=== PATIENT | male | born 1960 | race Caucasian/White ===

== ENCOUNTER 2016-12-25 11:39 | Emergency (ER) | payer MEDICAID, OTHER ==
[~2016-12-25] VITALS: Ht 175.3 cm; Wt 70.4 kg
[~2016-12-25 11:39] MED LIST: DIVA500T69 PO; QUET200T PO
[2016-12-25] MEDS ORDERED: OLAN10TA3 PO (11:55)
[2016-12-25 12:26] LABS: BASOPHILS # (AUTO) 0.03 K/uL (0.00-0.20); BASOPHILS % (AUTO) 0.6 % (0.0-2.0); EOSINOPHILS % (AUTO) 1.81 % (1.0-6.0); HEMATOCRIT 39.3 % (41-53); HEMOGLOBIN 13.2 g/dL (13.5-17.5); LYMPHOCYTES # (AUTO) 1.2 K/uL (1.0-4.8); LYMPHOCYTES % (AUTO) 22.7 % (22.0-44.0); MEAN CORPUSCULAR HGB CONC 33.6 G/dL (31.0-37.0); MEAN CORPUSCULAR VOLUME 95 fL (80-100); MONOCYTES # (AUTO) 0.5 K/uL (0.1-1.0); MONOCYTES % (AUTO) 9.8 % (2.0-9.0); NEUTROPHILS # (AUTO) 3.5 K/uL (1.8-7.7); PLATELET COUNT (AUTO) 149 K/uL (150-450); RED BLOOD CELL COUNT(AUTO) 4.13 MIL/uL (4.50-5.90); RED CELL DISTRIBUTION WIDTH 13.3 % (11.5-14.5); WHITE BLOOD COUNT (AUTO) 5.4 K/uL (4.5-11.0)
[2016-12-25 12:35] LABS: ANION GAP 5 mmol/L (8-16); CALCIUM, TOTAL 8.3 mg/dL (8.8-10.5); CARBON DIOXIDE 29 mmol/L (22-29); CHLORIDE 102 mmol/L (98-107); CREATININE 0.85 mg/dL (0.60-1.30); GLOMERULAR FILTR. RATE CALC > 60 mL/min (>60); POTASSIUM 4.1 mmol/L (3.5-5.1); SODIUM SERUM 136 mmol/L (136-145); UREA NITROGEN, BLOOD 12 mg/dL (7-18)
[2016-12-25 12:42] LABS: ALANINE AMINOTRANSFERASE 43 U/L (12-78); ALBUMIN 3.5 g/dL (3.4-5.0); ASPARTATE AMINOTRANSFERASE 26 U/L (15-37); BILIRUBIN,TOTAL 0.5 mg/dL (0.1-1.0); TOTAL PROTEIN, SERUM 6.9 g/dL (6.4-8.2)
[2016-12-25] MEDS ORDERED: QUEtiapine FUMARATE 100 MG TABLET PO ONE (14:15)
[2016-12-25 16:09] VITALS: BP 135/82
== END 2016-12-25 16:13 | disposition home or self-care (01) ==
LOC: EEVIPCON 11:41 → EMS 11:41
DX: F20.9 Schizophrenia, unspecified (principal); K02.9 Dental caries, unspecified; F15.10 Other stimulant abuse, uncomplicated; F31.9 Bipolar disorder, unspecified; F17.210 Nicotine dependence, cigarettes, uncomplicated
CPT/HCPCS: 36415; 80053; 80307; 85025; 99284; 99406; G0480

== ENCOUNTER 2018-12-30 10:28 | Inpatient (IN) | payer MEDICAID, OTHER ==
[~2018-12-30] VITALS: Ht 167.6 cm; Wt 73.5 kg
[~2018-12-30 10:28] MED LIST changes: -DIVA500T69 PO; +OLAN10TA3 PO; -QUET200T PO
[2018-12-30] MEDS ORDERED: LORazepam 2 MG/ML VIAL IM ONE (11:30)
[2018-12-30] MEDS ORDERED: DiphenhydrAMINE HCL 50 MG/ML VIAL IM ONE (11:30)
[2018-12-30 12:12] LABS: BASOPHILS % (AUTO) 0.3 % (0.0-2.0); EOSINOPHILS % (AUTO) 0 % (1.0-6.0); HEMATOCRIT 34.6 % (41-53); HEMOGLOBIN 11.7 g/dL (13.5-17.5); LYMPHOCYTES # (AUTO) 0.9 K/uL (1.0-4.8); LYMPHOCYTES % (AUTO) 12.4 % (22.0-44.0); MEAN CORPUSCULAR HEMOGLOBIN 30.8 pg (26.0-34.0); MEAN CORPUSCULAR HGB CONC 33.9 G/dL (31.0-37.0); MEAN CORPUSCULAR VOLUME 91 fL (80-100); MONOCYTES # (AUTO) 0.7 K/uL (0.1-1.0); MONOCYTES % (AUTO) 9.9 % (2.0-9.0); NEUTROPHILS # (AUTO) 5.5 K/uL (1.8-7.7); NEUTROPHILS % (AUTO) 77.4 % (40.0-70.0); PLATELET COUNT (AUTO) 198 K/uL (150-450); RED BLOOD CELL COUNT(AUTO) 3.81 MIL/uL (4.50-5.90); RED CELL DISTRIBUTION WIDTH 13.2 % (11.5-14.5)
[2018-12-30] MEDS ORDERED: ZOLPIDEM TARTRATE 10 MG TABLET PO PRN (12:15)
[2018-12-30] MEDS ORDERED: HALOPERIDOL 5 MG TABLET PO PRN (12:15)
[2018-12-30 12:21] LABS: ANION GAP 10 mmol/L (8-16); CALCIUM, TOTAL 9.8 mg/dL (8.8-10.5); CARBON DIOXIDE 27 mmol/L (22-29); CHLORIDE 107 mmol/L (98-107); GLOMERULAR FILTR. RATE CALC 44 mL/min (>60); GLUCOSE,RANDOM 117 mg/dL (70-110); POTASSIUM 3.8 mmol/L (3.5-5.1); SODIUM SERUM 144 mmol/L (136-145); UREA NITROGEN, BLOOD 38 mg/dL (7-18)
[2018-12-30 12:27] LABS: ALANINE AMINOTRANSFERASE 80 U/L (12-78); ALKALINE PHOSPHATASE 91 U/L (46-116); ASPARTATE AMINOTRANSFERASE 66 U/L (15-37); BILIRUBIN,TOTAL 0.6 mg/dL (0.1-1.0); TOTAL PROTEIN, SERUM 8.2 g/dL (6.4-8.2)
[2018-12-30 16:17] VITALS: BP 116/67
[2018-12-30] MEDS ORDERED: ACETAMINOPHEN 325 MG TABLET PO PRN (16:45)
[2018-12-30] MEDS ORDERED: MAGNESIUM HYDROXIDE SUSPENSION 30 ML UDCUP PO PRN (16:45)
[2018-12-30] MEDS ORDERED: ALBUTEROL SULFATE HFA 90 MCG/PUFF 8 GM INHALER IH PRN (16:45)
[2018-12-30] MEDS ORDERED: CloNIDine HCL 0.1 MG TABLET PO PRN (16:45)
[2018-12-30] MEDS ORDERED: LOPERAMIDE HCL 2 MG CAPSULE PO PRN (16:45)
[2018-12-30] MEDS ORDERED: ONDANSETRON HCL 4 MG TABLET PO PRN (16:45)
[2018-12-30] MEDS ORDERED: NICOTINE 14 MG/24 HOUR PATCH TD PRN (16:45)
[2018-12-30] MEDS ORDERED: DOCUSATE SODIUM 100 MG CAPSULE PO PRN (16:45)
[2018-12-30] MEDS ORDERED: GuaiFENesin/D-METHORPHAN [SUGAR-FREE] 200-20MG/10 ML SYRUP UDCUP PO PRN (16:45)
[2018-12-30] MEDS ORDERED: IBUPROFEN 400 MG TABLET PO PRN (16:45)
[2018-12-30] MEDS ORDERED: MAG HYDROX/AL HYDROX/SIMETH ES 30 ML SUSPENSION UDCUP PO PRN (16:45)
[2018-12-30] MEDS: QUEtiapine FUMARATE 200 MG TABLET PO SCH (20:50)
[2018-12-30] MEDS ORDERED: QUEtiapine FUMARATE 100 MG TABLET PO SCH (21:00)
[2018-12-31 02:46] VITALS: BP 111/58
[2018-12-31] MEDS: QUEtiapine FUMARATE 200 MG TABLET PO SCH ×2 (08:54→20:31)
[2018-12-31 12:47] VITALS: BP 118/72
[2018-12-31] MEDS: LORazepam 2 MG TABLET PO PRN (13:19)
[2019-01-01 01:36] VITALS: BP 102/59
[2019-01-01] MEDS: QUEtiapine FUMARATE 200 MG TABLET PO SCH ×2 (08:41→20:21)
[2019-01-01] MEDS: LORazepam 2 MG TABLET PO PRN (15:10)
[2019-01-01 16:15] VITALS: BP 124/67
[2019-01-02 03:18] VITALS: BP 119/64
[2019-01-02 08:27] VITALS: BP 129/78
[2019-01-02] MEDS: QUEtiapine FUMARATE 200 MG TABLET PO SCH ×2 (08:33→20:25)
[2019-01-02 16:00] VITALS: BP 98/80
[2019-01-03 03:01] VITALS: BP 121/72
[2019-01-03 08:15] VITALS: BP 135/83
[2019-01-03] MEDS: QUEtiapine FUMARATE 200 MG TABLET PO SCH ×2 (08:15→20:21)
[2019-01-03 08:41] LABS: ANION GAP 8 mmol/L (8-16); CALCIUM, TOTAL 9.1 mg/dL (8.8-10.5); CARBON DIOXIDE 29 mmol/L (22-29); CHLORIDE 105 mmol/L (98-107); CREATININE 0.83 mg/dL (0.60-1.30); GLOMERULAR FILTR. RATE CALC > 60 mL/min (>60); GLUCOSE,RANDOM 78 mg/dL (70-110); POTASSIUM 4.6 mmol/L (3.5-5.1); SODIUM SERUM 142 mmol/L (136-145); UREA NITROGEN, BLOOD 21 mg/dL (7-18)
[2019-01-03 16:00] VITALS: BP 108/66
[2019-01-04 04:51] VITALS: BP 111/71
[2019-01-04 08:09] VITALS: BP 128/64
[2019-01-04] MEDS: QUEtiapine FUMARATE 200 MG TABLET PO SCH (08:21)
[2019-01-04] MEDS ORDERED: QUET200T PO (15:12)
[2019-01-04 16:08] VITALS: BP 126/67
== END 2019-01-04 17:07 | disposition home or self-care (01) | DRG 750 ==
LOC: EMS 10:31 → B3A 14:54
PROVIDERS: ATTEND Psychiatry & Neurology Child & Adolescent Psychiatry
DX: F20.0 Paranoid schizophrenia (principal); N17.9 Acute kidney failure, unspecified; Z59.0 Homelessness; Z78.1 Physical restraint status; B19.20 Unspecified viral hepatitis C without hepatic coma; F17.210 Nicotine dependence, cigarettes, uncomplicated; J44.9 Chronic obstructive pulmonary disease, unspecified; D64.9 Anemia, unspecified; F31.9 Bipolar disorder, unspecified; F10.10 Alcohol abuse, uncomplicated; F15.90 Other stimulant use, unspecified, uncomplicated; Z56.0 Unemployment, unspecified
CPT/HCPCS: 80074; G0480; J1200; J2060; J3230

== ENCOUNTER 2019-12-15 11:25 | Inpatient (IN) | payer MEDICAID, OTHER ==
[~2019-12-15] VITALS: Ht 170.2 cm; Wt 62.1 kg
[~2019-12-15 11:25] MED LIST changes: -OLAN10TA3 PO; +QUET200T PO
[2019-12-15] MEDS ORDERED: HALOPERIDOL LACTATE 5 MG/ML VIAL IM ONE (11:45)
[2019-12-15 12:23] LABS: BASOPHILS % (AUTO) 0.3 % (0.0-2.0); EOSINOPHILS % (AUTO) 0.4 % (1.0-6.0); HEMATOCRIT 32.5 % (41-53); HEMOGLOBIN 10.9 g/dL (13.5-17.5); LYMPHOCYTES # (AUTO) 0.8 K/uL (1.0-4.8); LYMPHOCYTES % (AUTO) 16.8 % (22.0-44.0); MEAN CORPUSCULAR HEMOGLOBIN 31.4 pg (26.0-34.0); MEAN CORPUSCULAR HGB CONC 33.6 G/dL (31.0-37.0); MEAN CORPUSCULAR VOLUME 94 fL (80-100); MONOCYTES # (AUTO) 0.5 K/uL (0.1-1.0); MONOCYTES % (AUTO) 10.8 % (2.0-9.0); NEUTROPHILS # (AUTO) 3.3 K/uL (1.8-7.7); NEUTROPHILS % (AUTO) 71.7 % (40.0-70.0); PLATELET COUNT (AUTO) 195 K/uL (150-450); RED BLOOD CELL COUNT(AUTO) 3.48 MIL/uL (4.50-5.90); RED CELL DISTRIBUTION WIDTH 15.4 % (11.5-14.5)
[2019-12-15 12:37] LABS: ANION GAP 11 mmol/L (8-16); CALCIUM, TOTAL 8.8 mg/dL (8.8-10.5); CARBON DIOXIDE 26 mmol/L (22-29); CHLORIDE 103 mmol/L (98-107); CREATININE 1.01 mg/dL (0.60-1.30); GLOMERULAR FILTR. RATE CALC > 60 mL/min (>60); GLUCOSE,RANDOM 94 mg/dL (70-110); POTASSIUM 3.9 mmol/L (3.5-5.1); SODIUM SERUM 140 mmol/L (136-145); UREA NITROGEN, BLOOD 18 mg/dL (7-18)
[2019-12-15 12:42] LABS: ALANINE AMINOTRANSFERASE 85 U/L (12-78); ALBUMIN 3.8 g/dL (3.4-5.0); ALKALINE PHOSPHATASE 79 U/L (46-116); ASPARTATE AMINOTRANSFERASE 60 U/L (15-37); BILIRUBIN,TOTAL 0.4 mg/dL (0.1-1.0); TOTAL PROTEIN, SERUM 7.7 g/dL (6.4-8.2)
[2019-12-15] MEDS ORDERED: SODIUM CHLORIDE 0.9% 0 ML ONE (12:58)
[2019-12-15] MEDS ORDERED: IOVERSOL 320 MG/ML 100 ML VIAL ONE (12:58)
[2019-12-15] MEDS ORDERED: CefTRIAXone SODIUM 1 GM/VIAL IM ONE (14:00)
[2019-12-15] MEDS ORDERED: LIDOCAINE/PF 1% 2 ML VIAL IM ONE (14:00)
[2019-12-15] MEDS ORDERED: SULFAMETHOX/TRIMETH DS 800-160 MG/TABLET PO ONE (14:00)
[2019-12-15] MEDS ORDERED: ZOLPIDEM TARTRATE 10 MG TABLET PO PRN (18:45)
[2019-12-15] MEDS ORDERED: HALOPERIDOL 5 MG TABLET PO PRN (18:45)
[2019-12-15] MEDS ORDERED: LORazepam 2 MG TABLET PO PRN (18:45)
[2019-12-15 19:18] LABS: AMPHET/METH SCREEN,URINE POSITIVE (NEGATIVE); BARBITURATE SCREEN, URINE NEGATIVE (NEGATIVE); BENZODIAZEPINES SCREEN,URINE NEGATIVE (NEGATIVE); CANNABINOID SCREEN,URINE NEGATIVE (NEGATIVE); COCAINE SCREEN,URINE NEGATIVE (NEGATIVE); METHADONE SCREEN, URINE NEGATIVE (NEGATIVE); OPIATE SCREEN,URINE NEGATIVE (NEGATIVE)
[2019-12-15 19:38] LABS: PHENCYCLIDINE SCREEN,URINE NEGATIVE (NEGATIVE)
[2019-12-15 22:11] VITALS: BP 128/92
[2019-12-16] MEDS ORDERED: DOCUSATE SODIUM 100 MG CAPSULE PO PRN (07:45)
[2019-12-16] MEDS ORDERED: IBUPROFEN 400 MG TABLET PO PRN (07:45)
[2019-12-16] MEDS ORDERED: LOPERAMIDE HCL 2 MG CAPSULE PO PRN (07:45)
[2019-12-16] MEDS ORDERED: ONDANSETRON HCL 4 MG TABLET PO PRN (07:45)
[2019-12-16] MEDS ORDERED: NICOTINE 14 MG/24 HOUR PATCH TD PRN (07:45)
[2019-12-16] MEDS ORDERED: MAGNESIUM HYDROXIDE SUSPENSION 30 ML UDCUP PO PRN (07:45)
[2019-12-16] MEDS ORDERED: MAG HYDROX/AL HYDROX/SIMETH ES 30 ML SUSPENSION UDCUP PO PRN (07:45)
[2019-12-16] MEDS ORDERED: GuaiFENesin/D-METHORPHAN [SUGAR-FREE] 200-20MG/10 ML SYRUP UDCUP PO PRN (07:45)
[2019-12-16] MEDS ORDERED: CloNIDine HCL 0.1 MG TABLET PO PRN (07:45)
[2019-12-16] MEDS ORDERED: ALBUTEROL SULFATE HFA 90 MCG/PUFF 8 GM INHALER IH PRN (07:45)
[2019-12-16] MEDS ORDERED: ACETAMINOPHEN 325 MG TABLET PO PRN (07:45)
[2019-12-16] MEDS ORDERED: PETROLATUM,WHITE 28 GM JELLY TP PRN (07:45)
[2019-12-16 07:53] LABS: CHOL/HDL RATIO 2.4 (4.2-7.3)
[2019-12-16] MEDS: NICOTINE 14 MG/24 HOUR PATCH TD SCH (09:00)
[2019-12-16] MEDS: SULFAMETHOX/TRIMETH DS 800-160 MG/TABLET PO SCH ×2 (09:11→16:26)
[2019-12-16] MEDS: CEPHALEXIN MONOHYDRATE 500 MG CAPSULE PO SCH ×3 (09:11→23:38)
[2019-12-16 16:00] VITALS: BP 148/89
[2019-12-16] MEDS: OLANZapine 5 MG TABLET PO SCH (16:26)
[2019-12-16 16:48] VITALS: BP 150/90
[2019-12-17] MEDS: OLANZapine 5 MG TABLET PO SCH ×2 (08:45→16:57)
[2019-12-17] MEDS: SULFAMETHOX/TRIMETH DS 800-160 MG/TABLET PO SCH ×2 (08:45→16:57)
[2019-12-17] MEDS: CEPHALEXIN MONOHYDRATE 500 MG CAPSULE PO SCH ×3 (08:45→23:43)
[2019-12-17] MEDS: MULTIVITAMINS WITH MINERALS, THERAPEUTIC TABLET PO SCH (08:45)
[2019-12-17] MEDS: NICOTINE 14 MG/24 HOUR PATCH TD SCH (08:52)
[2019-12-17 16:13] VITALS: BP 107/72
[2019-12-18] MEDS: OLANZapine 5 MG TABLET PO SCH ×2 (08:21→16:39)
[2019-12-18] MEDS: CEPHALEXIN MONOHYDRATE 500 MG CAPSULE PO SCH ×3 (08:21→23:41)
[2019-12-18] MEDS: NICOTINE 14 MG/24 HOUR PATCH TD SCH (08:21)
[2019-12-18] MEDS: SULFAMETHOX/TRIMETH DS 800-160 MG/TABLET PO SCH ×2 (08:21→16:38)
[2019-12-18] MEDS: MULTIVITAMINS WITH MINERALS, THERAPEUTIC TABLET PO SCH (08:21)
[2019-12-18 10:41] VITALS: BP 132/73
[2019-12-18] MEDS: CLINDAMYCIN HCL 300 MG CAPSULE PO SCH ×2 (13:49→16:38)
[2019-12-18 19:11] VITALS: BP 106/60
[2019-12-19] MEDS: SULFAMETHOX/TRIMETH DS 800-160 MG/TABLET PO SCH ×2 (08:45→16:18)
[2019-12-19] MEDS: CLINDAMYCIN HCL 300 MG CAPSULE PO SCH ×3 (08:45→16:18)
[2019-12-19] MEDS: OLANZapine 5 MG TABLET PO SCH ×2 (08:45→16:18)
[2019-12-19] MEDS: MULTIVITAMINS WITH MINERALS, THERAPEUTIC TABLET PO SCH (08:45)
[2019-12-19] MEDS: NICOTINE 14 MG/24 HOUR PATCH TD SCH (08:46)
[2019-12-19] MEDS: CEPHALEXIN MONOHYDRATE 500 MG CAPSULE PO SCH ×2 (08:46→16:18)
[2019-12-19 08:52] VITALS: BP 112/69
[2019-12-19 17:54] VITALS: BP 151/78
[2019-12-20] MEDS: CEPHALEXIN MONOHYDRATE 500 MG CAPSULE PO SCH ×3 (00:02→16:11)
[2019-12-20] MEDS: SULFAMETHOX/TRIMETH DS 800-160 MG/TABLET PO SCH ×2 (08:43→16:10)
[2019-12-20] MEDS: OLANZapine 5 MG TABLET PO SCH ×2 (08:43→16:10)
[2019-12-20] MEDS: CLINDAMYCIN HCL 300 MG CAPSULE PO SCH ×3 (08:43→16:10)
[2019-12-20] MEDS: MULTIVITAMINS WITH MINERALS, THERAPEUTIC TABLET PO SCH (08:43)
[2019-12-20] MEDS: NICOTINE 14 MG/24 HOUR PATCH TD SCH (08:44)
[2019-12-20 09:13] VITALS: BP 153/90
[2019-12-20 19:27] VITALS: BP 128/71
[2019-12-21] MEDS: CEPHALEXIN MONOHYDRATE 500 MG CAPSULE PO SCH ×3 (00:17→16:03)
[2019-12-21 08:00] VITALS: BP 114/60
[2019-12-21] MEDS: SULFAMETHOX/TRIMETH DS 800-160 MG/TABLET PO SCH ×2 (08:01→16:03)
[2019-12-21] MEDS: OLANZapine 5 MG TABLET PO SCH ×2 (08:01→16:03)
[2019-12-21] MEDS: MULTIVITAMINS WITH MINERALS, THERAPEUTIC TABLET PO SCH (08:01)
[2019-12-21] MEDS: CLINDAMYCIN HCL 300 MG CAPSULE PO SCH ×3 (08:02→16:03)
[2019-12-21] MEDS: NICOTINE 14 MG/24 HOUR PATCH TD SCH (08:02)
[2019-12-21 16:52] VITALS: BP 116/73
[2019-12-22] MEDS: CEPHALEXIN MONOHYDRATE 500 MG CAPSULE PO SCH ×3 (00:12→16:03)
[2019-12-22] MEDS: CLINDAMYCIN HCL 300 MG CAPSULE PO SCH ×3 (08:49→16:03)
[2019-12-22] MEDS: SULFAMETHOX/TRIMETH DS 800-160 MG/TABLET PO SCH ×2 (08:49→16:03)
[2019-12-22] MEDS: MULTIVITAMINS WITH MINERALS, THERAPEUTIC TABLET PO SCH (08:49)
[2019-12-22] MEDS: OLANZapine 5 MG TABLET PO SCH ×2 (08:49→16:03)
[2019-12-22] MEDS: NICOTINE 14 MG/24 HOUR PATCH TD SCH (08:50)
[2019-12-22 12:37] VITALS: BP 124/100
[2019-12-22 16:52] VITALS: BP 127/62
[2019-12-23] MEDS: SULFAMETHOX/TRIMETH DS 800-160 MG/TABLET PO SCH ×2 (08:10→16:14)
[2019-12-23] MEDS: OLANZapine 5 MG TABLET PO SCH ×2 (08:11→16:14)
[2019-12-23] MEDS: CLINDAMYCIN HCL 300 MG CAPSULE PO SCH ×3 (08:11→16:14)
[2019-12-23] MEDS: CEPHALEXIN MONOHYDRATE 500 MG CAPSULE PO SCH ×4 (08:11→23:53)
[2019-12-23] MEDS: MULTIVITAMINS WITH MINERALS, THERAPEUTIC TABLET PO SCH (08:11)
[2019-12-23] MEDS: NICOTINE 14 MG/24 HOUR PATCH TD SCH (08:12)
[2019-12-23 08:35] VITALS: BP 133/87
[2019-12-23 17:11] VITALS: BP 151/89
[2019-12-24] MEDS: MULTIVITAMINS WITH MINERALS, THERAPEUTIC TABLET PO SCH (08:59)
[2019-12-24] MEDS: CEPHALEXIN MONOHYDRATE 500 MG CAPSULE PO SCH ×3 (08:59→23:57)
[2019-12-24] MEDS: OLANZapine 5 MG TABLET PO SCH ×2 (08:59→16:09)
[2019-12-24] MEDS: CLINDAMYCIN HCL 300 MG CAPSULE PO SCH ×3 (08:59→16:09)
[2019-12-24] MEDS: SULFAMETHOX/TRIMETH DS 800-160 MG/TABLET PO SCH ×2 (08:59→16:09)
[2019-12-24] MEDS: NICOTINE 14 MG/24 HOUR PATCH TD SCH (09:12)
[2019-12-24 09:33] VITALS: BP 136/79
[2019-12-24 17:15] VITALS: BP 108/66
[2019-12-25] MEDS: CEPHALEXIN MONOHYDRATE 500 MG CAPSULE PO SCH ×2 (08:20→16:12)
[2019-12-25] MEDS: OLANZapine 5 MG TABLET PO SCH ×2 (08:20→16:12)
[2019-12-25] MEDS: MULTIVITAMINS WITH MINERALS, THERAPEUTIC TABLET PO SCH (08:20)
[2019-12-25] MEDS: SULFAMETHOX/TRIMETH DS 800-160 MG/TABLET PO SCH ×2 (08:20→16:12)
[2019-12-25] MEDS: NICOTINE 14 MG/24 HOUR PATCH TD SCH (08:21)
[2019-12-25] MEDS: CLINDAMYCIN HCL 300 MG CAPSULE PO SCH (08:21)
[2019-12-25 08:39] VITALS: BP 114/75
[2019-12-25 17:00] VITALS: BP 102/53
[2019-12-26] MEDS: CEPHALEXIN MONOHYDRATE 500 MG CAPSULE PO SCH (00:14)
[2019-12-26] MEDS: OLANZapine 5 MG TABLET PO SCH ×2 (08:41→16:09)
[2019-12-26] MEDS: MULTIVITAMINS WITH MINERALS, THERAPEUTIC TABLET PO SCH (08:42)
[2019-12-26] MEDS: NICOTINE 14 MG/24 HOUR PATCH TD SCH (08:42)
[2019-12-26 09:07] VITALS: BP 138/89
[2019-12-26 16:36] VITALS: BP 129/77
[2019-12-27 05:44] VITALS: BP 100/72
[2019-12-27] MEDS: NICOTINE 14 MG/24 HOUR PATCH TD SCH (08:30)
[2019-12-27] MEDS: OLANZapine 5 MG TABLET PO SCH ×2 (08:30→16:17)
[2019-12-27] MEDS: MULTIVITAMINS WITH MINERALS, THERAPEUTIC TABLET PO SCH (08:30)
[2019-12-27 08:48] VITALS: BP 114/65
[2019-12-27 16:32] VITALS: BP 118/71
[2019-12-27] MEDS: CLOTRIMAZOLE 1% 10 ML SOLUTION TP SCH (18:37)
[2019-12-28 01:05] VITALS: BP 124/61
[2019-12-28 09:05] VITALS: BP 101/58
[2019-12-28] MEDS: OLANZapine 5 MG TABLET PO SCH ×2 (09:07→16:16)
[2019-12-28] MEDS: MULTIVITAMINS WITH MINERALS, THERAPEUTIC TABLET PO SCH (09:07)
[2019-12-28] MEDS: NICOTINE 14 MG/24 HOUR PATCH TD SCH (09:07)
[2019-12-28] MEDS: CLOTRIMAZOLE 1% 10 ML SOLUTION TP SCH ×2 (09:07→16:16)
[2019-12-28 18:38] VITALS: BP 104/74
[2019-12-29 06:08] VITALS: BP 124/61
[2019-12-29 08:00] VITALS: BP 113/77
[2019-12-29] MEDS: MULTIVITAMINS WITH MINERALS, THERAPEUTIC TABLET PO SCH (08:55)
[2019-12-29] MEDS: OLANZapine 5 MG TABLET PO SCH ×2 (08:55→16:09)
[2019-12-29] MEDS: NICOTINE 14 MG/24 HOUR PATCH TD SCH (08:56)
[2019-12-29] MEDS: CLOTRIMAZOLE 1% 10 ML SOLUTION TP SCH (09:38)
[2019-12-29] MEDS ORDERED: OLAN5TAB2 PO (14:16)
== END 2019-12-29 17:45 | disposition home or self-care (01) | DRG 885 ==
LOC: EMS 11:26 → 3EI 19:30
PROVIDERS: ADMIT Psychiatry & Neurology Psychiatry; ATTEND Psychiatry & Neurology Psychiatry
DX: F20.9 Schizophrenia, unspecified (principal); L03.116 Cellulitis of left lower limb; G40.909 Epilepsy, unspecified, not intractable, without status epilepticus; I10 Essential (primary) hypertension; F15.90 Other stimulant use, unspecified, uncomplicated; F10.10 Alcohol abuse, uncomplicated; E11.9 Type 2 diabetes mellitus without complications; D64.9 Anemia, unspecified; J44.9 Chronic obstructive pulmonary disease, unspecified; Z59.0 Homelessness; Z87.891 Personal history of nicotine dependence
CPT/HCPCS: 87070; 87205; G0480; J1630; J7050

== ENCOUNTER 2023-09-12 16:35 | Emergency (ER) | payer MEDICAID, OTHER ==
[~2023-09-12] VITALS: Ht 175.3 cm; Wt 70.5 kg
[~2023-09-12 16:35] MED LIST changes: +OLAN5TAB52 PO; -QUET200T PO
[2023-09-12 17:10] VITALS: BP 132/82; PULSE 98; RESP 18; TEMP 98.6
== END 2023-09-12 17:19 ==
LOC: EMS 16:38
DX: F20.9 Schizophrenia, unspecified (principal); F31.9 Bipolar disorder, unspecified; R56.9 Unspecified convulsions; K76.9 Liver disease, unspecified; F17.210 Nicotine dependence, cigarettes, uncomplicated; F15.90 Other stimulant use, unspecified, uncomplicated
CPT/HCPCS: 99283